=== PATIENT | female | born 2000 | race Caucasian/White ===

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

== ENCOUNTER 2018-10-13 13:23 | Outpatient (CLI) | payer OTHER | END 2018-10-13 13:25 | LOC: LABRHC 13:23 | PROVIDERS: ATTEND Family Medicine | DX: R82.90 Unspecified abnormal findings in urine (principal) | CPT/HCPCS: 87086 ==